=== PATIENT | female | born 1995 | race Caucasian/White ===

== ENCOUNTER → 2023-01-29 09:39 | Outpatient (CLI) | payer OTHER, SELFPAY ==
--- NOTE | ~2023-01-29 | US_ITS ---
EXAMINATION: US OB /maternal detail DATE: 01/29/2023 10:09 INDICATION: Second trimester anatomic survey TECHNIQUE: Real-time ultrasound of the pelvis was performed. COMPARISON: None. FINDINGS: There is a single living fetus in vertex presentation. The placenta is posterior and 5.2 cm from the internal cervical os. The cervical length is 2.4 cm. heart rate is 148 beats per minute (bpm). cardiac activity and movement are noted. The amniotic fluid index is subjectively normal . The outflow tracts of the heart are not well demonstrated. The following anatomy was identified as normal: 4 chamber heart 3 vessel cord cord insertion kidneys urinary bladder stomach spine diaphragm ventricles cisterna magna cerebellum The following biometric data were obtained: Biparietal diameter (BPD): 4.3 cm; head circumference (HC): 16.1 cm; abdominal circumference (AC): 12 .8 cm; femur length (FL): 2.8 cm. These measurements are concordant. Estimated weight is 243 g +/- 36 g, which correlates with the 60 percentile when 07/01/2023 is us ed as estimated date of delivery. As single measurements, these parameters are each equal to the following estimated gestational ages w ith ranges of +/- 2 standard deviations: BPD: 19 weeks 0 days ( 17 weeks 2 days - 20 weeks 5 days). HC: 18 weeks 6 days ( 17 weeks 3 days - 20 weeks 2 days). AC: 18 weeks 2 days ( 16 weeks 2 days - 20 weeks 3 days). FL: 18 weeks 4 days ( 16 weeks 5 days - 20 weeks 3 days). estimated gestational age based solely on measurements from this exam is 18 weeks 5 days +/- 1 weeks 2 days. IMPRESSION: 1. Single living fetus in vertex presentation. 2. Estimated weight is 243 g +/- 36 g, which correlates with the 60 percentile when 07/01/2023 is used as estimated date of delivery. 3. Outflow tracts of the heart are not well demonstrated. Reviewed, dictated and finalized at location L. IMPRESSION: 1. Single living fetus in vertex presentation. 2. Estimated weight is 243 g +/- 36 g, which correlates with the 60 perce ntile when 07/01/2023 is used as estimated date of delivery. 3. Outflow tracts of the heart are not well demonstrated.
== END ==
PROVIDERS: PCP Advanced Practice Midwife; Visit Provider Advanced Practice Midwife
DX: Z36.9 Encounter for antenatal screening, unspecified (principal)
CPT/HCPCS: 76805

== ENCOUNTER 2023-06-10 11:38 | Observation (INO) | payer OTHER, SELFPAY ==
[2023-06-10 12:30] VITALS: BP 116/79; PULSE 104
--- NOTE | 2023-06-10 12:31 | OBADM ---
This patient, Marcella Zapata, admitted to the OB room Labor/Delivery/Recovery 109 for observation. Patient/family oriented to hospital policies and general routines including ID bracelet, bed and alarms, visiting hours, pain management, procedures, bathroom and other care routines, personal items, smoking policy, room service/diet, and visiting hours. Patient/Family are encouraged to report perceived risks to care and to ask questions if they do not understand what they are told or what they should do.
--- NOTE | 2023-06-10 12:58 | PC.NURSE ---
1224: RN paged CATRACHITO Deluna. 1246: CATRACHITO responded to page. RN reported FHT that were category 1, occasional contractions that patient does not feel, patient's complaints of leaking fluid and feeling like she has to have a bowel movement, ROM Plus negative results, SVE,and vaginal discharge. Orders to discharge patient home with instructions on when to return to the hospital.
[2023-06-10 13:03] VITALS: BP 121/71; PULSE 109
--- NOTE | 2023-06-12 18:27 | PM.OBTRLD ---
OB - Triage/Final Diagnosis Visit Information Date of evaluation: 06/10/23 Reason for evaluation: other (leaking fluid) Comments/Additional reasons for admission: I have assessed the risk for this patient, Marcella Zapata, and determined that she would benefit from observation care.
== END 2023-06-10 13:00 | disposition home or self-care (01) ==
PROVIDERS: Admitting Provider Advanced Practice Midwife; PCP Family Medicine; Visit Provider Advanced Practice Midwife
DX: O42.92 Full-term premature rupture of membranes, unspecified as to length of time between rupture and onset of labor (principal); Z3A.37 37 weeks gestation of pregnancy
CPT/HCPCS: 59025; G0378; G0379

== ENCOUNTER 2023-06-17 22:40 | Observation (INO) | payer OTHER, SELFPAY ==
--- NOTE | 2023-06-17 23:56 | PC.NURSE ---
Updated Nyla Deluna CNM on pt, decreased movement, tracing, and contractions. Orders received to D/C pt with instructions on when to keep next appointment and when to return to unit.
[2023-06-18 00:22] VITALS: BMI 33.7
--- NOTE | 2023-06-18 00:24 | OBADM ---
This patient, Marcella Zapata, admitted to the OB room Labor/Delivery/Recovery 106 for observation. Patient/family oriented to hospital policies and general routines including ID bracelet, bed and alarms, visiting hours, pain management, procedures, bathroom and other care routines, personal items, smoking policy, room service/diet, and visiting hours. Patient/Family are encouraged to report perceived risks to care and to ask questions if they do not understand what they are told or what they should do.
--- NOTE | 2023-06-21 05:03 | PM.OBTRLD ---
OB - Triage/Final Diagnosis Visit Information Date of evaluation: 06/17/23 Reason for evaluation: decreased movement and threatened labor Comments/Additional reasons for admission: I have assessed the risk for this patient, Marcella Zapata, and determined that she would benefit from observation care.
== END 2023-06-18 00:43 | disposition home or self-care (01) ==
PROVIDERS: Admitting Provider Advanced Practice Midwife; PCP Family Medicine; Visit Provider Advanced Practice Midwife
DX: O36.8130 Decreased fetal movements, third trimester, not applicable or unspecified (principal); Z3A.38 38 weeks gestation of pregnancy; O47.1 False labor at or after 37 completed weeks of gestation
CPT/HCPCS: G0378; G0379

== ENCOUNTER 2023-06-20 18:16 | Inpatient (IN) | payer OTHER, SELFPAY ==
[2023-06-20] VITALS (9 sets, daily range): BP systolic 114–145; BP diastolic 55–86; PULSE 91–104; RESP 16–17; TEMP 36.6–37; BMI 33.8
--- NOTE | 2023-06-20 18:16 | LDADM ---
This patient, Marcella Zapata, was admitted to Labor/Delivery/Recovery 107 on 06/20/23 at 18:16. Plans for labor, pain management and were discussed with patient. Patient/family oriented to hospital policies and general routines including ID bracelet, bed and alarms, visiting hours, pain management, procedures, bathroom and other care routines, personal items, smoking policy, room service/diet and guest tray routines, infant security routines, and visiting hours. Patient/Family are encouraged to report perceived risks to care and to ask questions if they do not understand what they are told or what they should do. See OBIX for further documentation.
[2023-06-20 19:48] LABS: Basophils Percent Auto 0.4 % (0.2-1.2); Eosinophils Absolute Auto 0.1 K/mm3 (0-0.3); Eosinophils Percent Auto 0.6 % (0-4.4); Hematocrit 41.9 % (37.0-47.0); Hemoglobin 13.7 g/dL (12.0-15.0); Immature Granulocyte Absolute 0.12 K/mm3 (0.00-0.031); Immature Granulocyte Percent A 1.1 % (0-0.5); Lymphocytes Absolute Auto 1.78 K/mm3 (0.9-3.2); Lymphocytes Percent Auto 15.8 % (18.3-44.2); Mean Corpuscular HGB Conc 32.7 g/dl (32-36); Mean Corpuscular Volume 88.6 fl (80-100); Mean Platelet Volume 9.7 fl (7.4-10.4); Monocytes Absolute Auto 0.9 K/mm3 (0.1-0.6); Neutrophils Absolute Auto 8.3 K/mm3 (1.3-6.7); Neutrophils Percent Auto 74.1 % (45.5-73.1); Platelet Count Result 215 k/mm3 (150-375); Red Blood Count 4.73 M/mm3 (4.2-5.4); White Blood Count 11.3 K/mm3 (4.5-10.0)
[2023-06-21] VITALS (33 sets, daily range): BP systolic 96–116; BP diastolic 49–67; PULSE 74–116; RESP 15–18; TEMP 36.5–37.3; O2SAT 97–100
[2023-06-21] MEDS: ONDANSETRON INJ 4 MG/2 ML VIAL IV PUSH (00:27)
--- NOTE | 2023-06-21 00:42 | WPDOBADMIT ---
Obstetrics - Admit Note Admission Note: record reviewed. No pertinent additions to the history and/or any subsequent changes in the physical findings that are not consistent with the expected course of the were found. Additions to the history and/or subsequent changes in the physical findings follow. None.
[2023-06-21] MEDS: OXYTOCIN 30 UNITS/NS 500 ML 30 UNITS/500 ML BAG 999 UNITS IV CONT (03:14)
[2023-06-21] MEDS: LIDOCAINE HCL 1% LOCAL INJ 20 ML VIAL ×2 (03:15→03:29)
--- NOTE | 2023-06-21 04:23 | PM.OBPRVD ---
OB - Delivery Note Procedure Delivery date: 06/21/23 Procedure: Induction method: None Delivery monitor: External FHT and External Uterine Route of delivery: Episiotomy description: None Laceration Description: Perineal - 2nd Degree and Vaginal (left vaginal side wall) Delivery repair: vicryl Specimen: No Quantitative Blood Loss (ml): 450 Anesthesia type: Local (for repair) Disposition: Floor Narrative: Patient arrived in spontaneous labor and progressed to complete dilation. She began pushing with contractions and made steady progress to . She delivered the head in the SHER position. There was excellent restitution in the anterior and posterior shoulders were delivered easily. After the remainder of the infant was delivered, she was placed on the maternal abdomen and dried and stimulated by the nursery staff. Before 1 minute of life, nursery staff requested the cord be clamped and cut for further assessment on the warmer. The cord was doubly clamped and then cut. Cord blood, cord gases, and cord segment were obtained. The placenta delivered spontaneously in the [place] presentation. lidocaine was injected in the vagina and perineum for repair. Patient tolerated this well. All delivery counts correct. Uterine tone was good, and there was excellent hemostasis. Baby Date of : 06/21/23 Time of : 03:13 Weeks of gestation at delivery: 38 Infant gender: Female Weight (pounds): 7 Weight (ounces): 10 presentation: vertex position: Left Occiput Anterior Placenta delivery description: Spontaneous and Normal Configuration Cord Vessel Description: 3 Vessels and Clamped/Cut score one minute: 8 score five minutes: 9
--- NOTE | 2023-06-21 04:29 | PM.OBDSVD ---
DS: Admitting Diagnosis Discharge Date 06/23/2023 Admitting Diagnosis 27 y.o. G1PO at 38 weeks gestation Spontaneous labor Anxiety and Depression Vegitarian B12 Deficiency DS: Discharge Diagnosis Discharge Diagnosis (1) (normal spontaneous vaginal delivery): Code(s): O80 - Encounter for full-term uncomplicated delivery Status: Acute (2) Intends combined and formula feeding: Status: Acute (3) Anxiety: Code(s): F41.9 - Anxiety disorder, unspecified Status: Acute (4) Depression: Code(s): F32.A - Depression, unspecified Status: Acute (5) B12 deficiency: Code(s): E53.8 - Deficiency of other specified B group vitamins Status: Acute OB - DS: Summary Hospital Course Hospital Course: Uncomplicated OB Procedures : Ultrasound OB Procedures Intrapartum: Spontaneous Vag Delivery OB Procedures: : None Peripartum Data Delivery Method: Natural Vaginal Laceration Description: Perineal - 2nd Degree and Vaginal - 1st Degree (left labial sidewall) Episiotomy description: None complications: none Status at Discharge Functional status at discharge: independent ambulation Overall status at discharge: patient is progressing back to baseline Time Spent with Patient Time attestation: Total time spent providing and/or coordinating discharge services: Exam Narrative: Alert and oriented. Mood is pleasant and cooperative. Perineum with minimal edema. Fundus firm and below umbilicus. Const: General: cooperative, healthy appearing, no acute distress and alert Orientation/consciousness: patient oriented x3 Limitations: no limitations Resp: Effort & Inspection: normal respiratory effort and able to speak in complete sentences Auscultation: clear to auscultation bilaterally Cardio: Rate: regular rate GI: Inspection: normal to inspection Auscultation: normal bowel sounds : Speculum Exam - Vagina: vaginal bleeding OB/external & speculum: vaginal bleeding Skin: General skin exam: normal color and no rashes or lesions noted Neuro: General: patient oriented x3 and moves all extremities Cognition (Neuro): normal cognition Extrem: General: normal to inspection and no calf tenderness Psych: Appearance: grossly normal Mental Status: mental status grossly normal Affect: normal affect Thought process: Normal thought process present DS: Data Data Completed and Pending Labs on day of discharge: Labs from last 24 hours 06/20/23 19:30 WBC 11.3 H RBC 4.73 Hgb 13.7 Hct 41.9 MCV 88.6 MCH 29.0 MCHC 32.7 RDW 15.0 H Plt Count 215 MPV 9.7 Immature Gran % (Auto) 1.1 H Neut % (Auto) 74.1 H Lymph % (Auto) 15.8 L [place] % (Auto) 8.0 Eos % (Auto) 0.6 Baso % (Auto) 0.4 Lymph # (Auto) 1.78 [place] # (Auto) 0.9 H Eos # (Auto) 0.1 Baso # (Auto) 0.0 Abs Immat Gran (auto) 0.12 H Absolute Neuts (auto) 8.3 H Absolute Nucleated RBC 0.0 Nucleated RBC % 0.0 RPR Pending Blood Type O Positive Antibody Screen Negative Discharge Plan Discharge Attending physician on discharge: Patricia Steiner Discharging Clinician: Elena Deluna Patient Disposition: Home, Self-Care Activity: may shower Diet: as tolerated Wound Care Instructions: follow printed instructions Discharge Instructions: Continue taking your vitamin and any other supplements as previously directed (Examples: Iron, Vitamin D). You may take Tylenol 1000mg over the counter every 6 hours as needed for pain. Do not exceed 4000mg of Tylenol daily. You may continue using tucks pads and dermoplast spray if needed for a few more days. Patient Instructions: Antibiotic Form Stand Alone Forms: General Discharge Information Follow-up/Referrals: Elena Deluna, CATRACHITO [Certified Nurse Transportation Department Supervisor] - (6 week appointment) Discharge Medications: New ferrous fumarate 324 mg (106 mg iron) tablet 32
[2023-06-21] MEDS: WITCH HAZEL 40 PADS 1 PAD TOPICAL (05:18)
[2023-06-21] MEDS: IBUPROFEN 600 MG TABLET PO ×3 (05:18→20:50)
[2023-06-21] MEDS: ACETAMINOPHEN 325 MG TABLET 650 MG PO ×3 (05:18→20:50)
[2023-06-21] MEDS: BENZOCAINE 20% AER SPR (*SP) 56 GM CAN 1 SPRAY TOPICAL (05:18)
[2023-06-21] MEDS: SERTRALINE HCL 50 MG TABLET 150 MG PO (20:41)
[2023-06-22] MEDS: ACETAMINOPHEN 325 MG TABLET 650 MG PO ×3 (04:15→19:15)
[2023-06-22] MEDS: IBUPROFEN 600 MG TABLET PO ×3 (04:15→19:15)
[2023-06-22 04:30] LABS: Hematocrit 33.4 % (37.0-47.0); Hemoglobin 10.8 g/dL (12.0-15.0)
[2023-06-22 08:00] VITALS: BP 112/69; PULSE 81; RESP 16; TEMP 37.2; O2SAT 98
--- NOTE | 2023-06-22 08:00 | PM.OBPNVD ---
OB - PN: Subj Subjective Date/time seen: 06/22/23 0750 Patient comments: no complaints and pain well controlled baby status: doing well and bottle feeding well feeding status: exclusively bottle feeding Narrative: PPD 1 from unmedicated . Exclusively formula feeding. Partner present and supportive. + bonding. OB - PN: Obj Data Labs 06/22/23 04:22 Labs: Laboratory Results - last 24 hr 06/22/23 04:22 Hgb 10.8 L Hct 33.4 L OB - PN A/P Plan day: 1 Plan: routine care Comments: Pt exclusively formula feeding. Discussed limiting stimulation to the breasts, supportive bra, ice, ibuprofen, etx. Time Spent With Patient Time: Total time spent is greater than 50% in coordination of care (as documented) at patient's floor/unit and/or counseling patient: Review of Systems Review of Systems: All systems reviewed & are unremarkable except as noted in HPI and below Constitutional: Constitutional: Reports no additional constitutional complaints Genitourinary: Comments: Urinating without difficulty. Exam Narrative: Alert and oriented. Mood is pleasant and cooperative. Perineum with minimal edema. Fundus firm and below umbilicus. Const: General: cooperative, healthy appearing, no acute distress and alert Orientation/consciousness: patient oriented x3 Limitations: no limitations Resp: Effort & Inspection: normal respiratory effort and able to speak in complete sentences Auscultation: clear to auscultation bilaterally Cardio: Rate: regular rate GI: Inspection: normal to inspection Auscultation: normal bowel sounds : External Female Exam: laceration (approximated, minimal edema. No redness to site) Speculum Exam - Vagina: vaginal bleeding OB/external & speculum: vaginal bleeding Skin: General skin exam: normal color and no rashes or lesions noted Neuro: General: patient oriented x3 and moves all extremities Cognition (Neuro): normal cognition Extrem: General: normal to inspection and no calf tenderness Psych: Appearance: grossly normal Mental Status: mental status grossly normal Affect: normal affect Thought process: Normal thought process present
[2023-06-22 10:56] LABS: Rapid Plasma Reagin Non-Reactive (NonReactive)
[2023-06-22] MEDS: WITCH HAZEL 40 PADS 1 PAD TOPICAL (12:04)
[2023-06-22] MEDS: BENZOCAINE 20% AER SPR (*SP) 56 GM CAN 1 SPRAY TOPICAL (12:05)
[2023-06-22 19:15] VITALS: BP 115/69; PULSE 93; RESP 16; TEMP 36.6
[2023-06-23] MEDS: ACETAMINOPHEN 325 MG TABLET 650 MG PO (05:24)
[2023-06-23] MEDS: IBUPROFEN 600 MG TABLET PO (05:24)
--- NOTE | 2023-06-23 07:35 | P.PNOB_ITS ---
OB - PN: Subj Subjective Date/time seen: 06/23/23 07:30 Patient comments: no complaints and pain well controlled baby status: doing well and bottle feeding well [place] feeding status: exclusively bottle feeding Narrative: PPD 2 from . Doing very well. Desires DC home today. OB - PN: Obj Data Labs 06/22/23 04:22 Labs: Laboratory Results - last 24 hr 06/20/23 19:30 RPR Non-reactive OB - PN A/P Plan day: 2 Plan: discharge home Time Spent With Patient Time: Total time spent is greater than 50% in coordination of care (as documented) at patient's floor/unit and/or counseling patient: Review of Systems Review of Systems: All systems reviewed & are unremarkable except as noted in HPI and below Constitutional: Constitutional: Reports no additional constitutional complaints Genitourinary: Comments: Urinating without difficulty. Exam Narrative: Alert and oriented. Mood is pleasant and cooperative. Perineum with minimal jackie ma. Fundus firm and below umbilicus. Const: General: cooperative, healthy appearing, no acute distress and alert Orientation/consciousness: patient oriented x3 Limitations: no limitations Resp: Effort & Inspection: normal respiratory effort and able to speak in complete sentences Auscultation: clear to auscultation bilaterally Cardio: Rate: regular rate GI: Inspection: normal to inspection Auscultation: normal bowel sounds : Speculum Exam - Vagina: vaginal bleeding OB/external & speculum: vaginal bleeding Skin: General skin exam: normal color and no rashes or lesions noted Neuro: General: patient oriented x3 and moves all extremities Cognition (Ne uro): normal cognition Extrem: General: normal to inspection and no calf tenderness Psych: Appearance: grossly normal Mental Status: mental status grossly normal Affect: normal affect Thought process: Normal thought process present
[2023-06-23 08:32] VITALS: BP 109/56; PULSE 90; RESP 18; TEMP 36.3; O2SAT 100
[2023-06-24 10:18] VITALS: BP 113/73; PULSE 85; RESP 18; TEMP 37.2; O2SAT 100
== END 2023-06-23 11:18 | disposition home or self-care (01) | DRG 807 ==
LOC: ANHLDR 06-21 04:35 → ANHOB2 06-21 08:42
PROVIDERS: Advanced Practice Midwife; Admitting Provider Obstetrics & Gynecology Gynecology; PCP Family Medicine; Visit Provider Obstetrics & Gynecology Gynecology
DX: O77.0 Labor and delivery complicated by meconium in amniotic fluid (principal); Z37.0 Single live birth; O70.1 Second degree perineal laceration during delivery; O99.344 Other mental disorders complicating childbirth; F41.8 Other specified anxiety disorders; E53.8 Deficiency of other specified B group vitamins; Z3A.38 38 weeks gestation of pregnancy
CPT/HCPCS: 36415; 85014; 85018; 85025; 86592; 86850; 86900; 86901; A9270; J2405; J2590

== ENCOUNTER 2025-08-30 10:45 | Outpatient (CLI) | payer OTHER, SELFPAY ==
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
--- OUTSIDE RECORDS SUMMARY | 2025-08-31 10:38 | XMS_ITS | Clinical Summary ---
Author Organization [facility] C Address [address] [place] [address] Care Team Providers Care It Associate Name Role Phone Marito Marie DO Primary Care Provider + Allergies No known active allergies Medications hydrOXYzine (ATARAX) 10 mg tabletIndications: Anxiety Take 1-2 tablets (10-20 mg total) by mouth every 8 (eight) hours as needed for anxiety 90 tablet 1 06/17/20 21 Active Additional Information Patient not taking.Reported on 09/05/2024 sertraline (ZOLOFT) 100 mg tablet TAKE 1 AND 1/2 TABLETS BY MOUTH EVERY DAY AT BEDTIME 08/21/20 23 Active ondansetron ODT (ZOFRAN-ODT) 4 mg disintegrating tablet Take 1 tablet (4 mg total) by mouth every 8 (eight) hours as needed for nausea 20 tablet 10/25/20 24 Active famotidine (PEPCID) 20 mg tablet Take 1 tablet (20 mg total) by mouth 2 (two) times a day for 15 days 30 tablet 10/25/20 24 Active amoxicillin-clavul anate (AUGMENTIN) 875-125 mg per tablet Take 1 tablet by mouth 2 (two) times a day 20 tablet 04/14/20 25 Active promethazine-DM (PROMETHAZINE-DM) 1.25-3 mg/mL syrup Take 5 mL by mouth every 4 (four) hours as needed for cough 120 mL 04/14/20 25 Active Active Problems Problem Noted Date Diagnosed Date MINAL (generalized anxiety disorder) 12/13/2021 Chronic pain of right knee 06/13/2021 Gastroesophageal reflux disease without esophagi tis 06/13/2021 Resolved Problems Problem Noted Date Diagnosed Date Resolved Date Anxiety 06/18/2021 12/13/2021 Assessment & Plan (06/18/2021 6:04 AM CDT): Uncontrolled Continue breathing exercises Discussed healthy diet & regular exercise Discussed meditation Continue lexapro Start atarax as needed Given Crisis line # Immunizations Immunization Administration Dates Next Due DTaP 5 Pertussis 05/10/2001, 7,04/20/1996,02/16,1995 Flucelvax Influenza Quad 12/12/2019 HPV, Unspecified 09/02/2010,04/30/2010, 9 Hep A, Unspecified 03/02/2008,02/05/2006 Hep B, Unspecified 07/15/1996,1995, 995 HiB 01/11/1997, 6,02/17/1996,12/17 IPV 05/10/2001, 6,02/17/1996,12/17 Influenza, Quadrivalent, Spl it, Preservative Free, Intramuscular 08/31/2023,07/19/2021,08/28/2020 Influenza, Trivalent, Preser vative Free, Intramuscular 09/05/2024 Influenza, Unspecified 08/26/2022,05/10/2001 MMR 05/10/2001,1996 Meningococcal ACWY, Unspecified 06/10/2012,06/05 Pfizer SARS-CoV-2 Monovalent Vaccination (12+ Yrs) PURPLE 01/04/2021,12/14/2020 Tdap 02/23/2023,02/05/2006 Varicella 06/07/2009,01/11/1997 Surgical History Surgery Date Site/Laterality Comments KNEE ARTHROSCOPY W/ LATERAL RELEASE 03/26/2011 - 04/24/20 11 WISDOM TOOTH EXTRACTION TONSILLECTOMY AND ADENOIDECTOMY Medical History Medical History Date Comments Arthritis 06/2017 Family History Medical History Relation Name Comments Depression Brother Peng Clotting disorder Maternal Grandfather Moses Early Maternal Grandfather Moses Heart attack Maternal Grandfather Moses Heart disease Maternal Grandfather Moses Hypertension Maternal Grandfather Moses Obesity Maternal Grandfather Moses Arthritis Maternal Grandmother Cha Memory loss Maternal Grandmother Cha Obesity Maternal Grandmother Cah Miscarriages / Stillbirths Mother Bernadette Obesity Mother Bernadette Alcohol abuse Mother's Brother 1 Donavan Obesity Mother's Brother 1 Donavan Obesity Mother's Brother 2 Michael Obesity Paternal Grandfather Mal Cancer Paternal Grandmother Cecile Relation Name Status Comments Brother Peng Father Alive Maternal Grandfather Moses Maternal Grandmother Cha Mother Bernadette Alive Mother's Brother 1 Donavan Mother's Brother 2 Michael Paternal Grandfather Mal Paternal Grandmother Cecile Social History Tobacco Use Types Packs/Day Years Used Date Smoking Tobacco: Never Smokeless Tobacco: Never Tobacco Cessation:Counseling Given: Not Answered Alcohol Use Standard Drinks/Week Comments Yes 1 (1 standard drink = 0.6 oz pur e alcohol) PHQ-2 Answer Date Recorded PHQ-2 Total Score (If total score is 3 or more points, staff should administer the PHQ-9) 0 09/05/2024 Personal Safety Answer Date Recorded Have you ever been in or are you currently in a harmful physical or emotional relationship or is someone making you feel afraid or unsafe? Denies 10/25/2024 Comments No Sex and Gender Information Value Date Recorded Sex Assigned at Not on file Legal Sex Female 11:07 AM CDT Gender Identity Female 05/05/2020 6:57 PM CDT Sexual Orientation Straight 05/05/2020 6: 57 PM CDT Last Filed Vital Signs Vital Sign Reading Time Taken Comments Blood Pressure 118/65 10/26/2024 12:00 AM OLIVE BRINE TESTER Pulse 94 10/26/2024 12:00 AM OLIVE BRINE TESTER Temperature 36.2 C (97.1 F) 10/25/2024 8:49 PM OLIVE BRINE TESTER Respiratory Rate 17 10/26/2024 12:00 AM OLIVE BRINE TESTER Oxygen Saturation 99% 10/26/2024 12:00 AM OLIVE BRINE TESTER Inhaled Oxygen Concentration - - Weight 77.1 kg (170 lb) 10/25/2024 8:49 PM OLIVE BRINE TESTER Height 170.2 cm (5' 7) 10/25/2024 8:49 PM OLIVE BRINE TESTER Body Mass Index 26.63 10/25/2024 8:49 PM OLIVE BRINE TESTER Plan of Treatment Health Maintenance Due Date Last Done Comments Cervical Cancer Screening 1995 Hepatitis C Screening 1995 Covid-19 Vaccine ( season) 2025 10/02/2021, 01/04/2021, 12/14/2020 Influenza Vaccine (#1) 2025 , 08/31/2023, 08/26/2022, Additional history exists Depression Screening 09/05/2025 09/05/2024, 08/31/2023, 08/27/2022, Additional history exists Regular Well Visit/Exam 18-64 09/05/2025 09/05/2024, 08/31/2023, 08/27/2022, Additional history exists DTaP/Tdap/Td Vaccine (8 - Td or Tdap) 02/23/2033 02/23/2023, 02/05/2006, 05/10/2001, Additional history exists Hepatitis B Screening Completed 07/15/1996 , 1995, 1995 Varicella Vaccines Completed 06/07/2009, 01/11/1997 HPV Vaccines Completed 09/02/2010, 03/2010, 06/05/2009 Pneumococcal vaccine <65 Aged Out No longer eligible based on patient's age to complete this topic Insurance [facility] [employer] Address: [facility] [id number] [place] [id number] [facility] [employer]IGNA CIGNA Care Teams It Associate Relationship Specialty Start Date End Date Marito Marie DO [address] [place] [id number] PCP - General Family Medicine 01/28/21
--- OUTSIDE RECORDS SUMMARY | 2025-08-31 10:38 | XMS_ITS | Clinical Summary ---
Author Organization [facility] Address [address] [place] [id number] Care Team Providers Care Choker Setter Name Role Phone Marito Marie DO Primary Care Provider [phone] Allergies No known active allergies Medications No known medications Family History Medical History Relation Comments No Known Problems Father Cancer Maternal Grandmother No Known Problems Mother Relation Status Comments Father Alive Maternal Grandmother Mother Alive Social History Tobacco Use Types Packs/Day Years Used Date Smoking Tobacco: Never Smokeless Tobacco: Never Tobacco Cessation:Counseling Given: Not Answered Alcohol Use Standard Drinks/Week Comments Not Currently 0 (1 standard drink = 0.6 oz pur e alcohol) socially Comments No Sex and Gender Information Value Date Recorded Sex Assigned at Not on file Legal Sex Female 8:01 AM CDT Gender Identity Not on file Sexual Orientation Not on file Last Filed Vital Signs Vital Sign Reading Time Taken Comments Blood Pressure 110/75 04/27/2024 8:24 AM CDT Pulse 80 04/27/2024 8:24 AM CDT Temperature 37.2 C (98.9 F) 04/27/2024 8:24 AM CDT Respiratory Rate 16 04/27/2024 8:24 AM CDT Oxygen Saturation 100% 04/27/2024 8:24 AM CDT Inhaled Oxygen Concentration - - Weight 79.4 kg (175 lb) 04/27/2024 8:24 AM CDT Height 170.2 cm (5' 7) 04/27/2024 8:24 AM CDT Body Mass Index 27.41 04/27/2024 8:24 AM CDT Plan of Treatment Health Maintenance Due Date Last Done Comments Cervical Cancer Screening Pap Smear (Age 21 to 29) Every 3 Years 1995 Cervical Cancer Screening 1995 Annual Physical 1998 COVID-19 Vaccine ( season) 2025 10/02/2021, 01/04/2021, 12/14/2020 Influenza Adult (#1) 2025 08/31/2023, 08/26/2022, 07/19/2021, Additional history exists DTaP, Tdap and Td Vaccines (8 - Td or Tdap) 02/23/2033 02/23/2023, 02/05/2006, 05/10/2001, Additional history exists Hepatitis B Vaccines Completed 07/15/1996, 1995, 1995 Hepatitis A Vaccines Completed 03/02/2008, 02/28/2008, 02/05/2006 HPV Vaccines Completed 09/02/2010, 0703/2010, 06/05/2009 Meningococcal Vaccine Aged Out 06/10/2012, 009 No longer eligible based on patient's age to complete this topic Hepatitis C Completed 12/10/2022 Meningococcal B Vaccine Aged Out No l onger eligible based on patient's age to complete this topic Pneumococcal Vaccine: Pediatrics (0 to 5 Years) and At-Risk Patients (6 to 49 Years) Aged Out No longer eligible based on patient's age to complete this topic RSV Immunizations Under 20 Months Aged Out No longer eligible based on patient's age to complete this topic Procedures Procedure Name Priority Date/Time Associated Diagnosis Comments HEPATITIS C ANTIBODY Routine 12/10/2022 4:40 PM ENVIRONMENTAL REMEDIATION SPECIALIST Screening for -associate d plasma protein A (HHS/HCC) from Last 3 Months or Most Recently Relevant to Health Maintenance Results * HEPATITIS C ANTIBODY (12/10/2022 4:40 PM ENVIRONMENTAL REMEDIATION SPECIALIST) HEPATITIS C AB NON-REACTI VE NON-REACTI VE 12/11/2022 12:02 PM ENVIRONMENTAL REMEDIATION SPECIALIST [facility] 12/10/2022 4:40 PM ENVIRONMENTAL REMEDIATION SPECIALIST [facility] Final Result [facility] [address] [place] [address], from Last 3 Months or Most Recently Relevant to Health Maintenance Insurance Care Teams Choker Setter Relationship Specialty Start Date End Date Marito Marie DO [address] [place] [place], [place] [id number] PCP - General FAMILY PRACTICE 09/16/22
--- OUTSIDE RECORDS SUMMARY | 2025-08-31 10:38 | XMS_ITS | Clinical Summary ---
Author Organization [facility] Address [address] [place] [address] Phone Care Team Providers Care Steam Flattener Name Role Phone Unavailable Primary Care Provider Unavailabl e Social History Tobacco Use Types Packs/Day Years Used Date Smoking Tobacco: Never Assessed Comments Unknown Sex and Gender Information Value Date Recorded Sex Assigned at Not on file Legal Sex Female 3:59 PM CDT Gender Identity Not on file Sexual Orientation Not on file Plan of Treatment Health Maintenance Due Date Last Done Comments DTAP/TDAP/TD VACCINES (1 - Tdap) 2014 HEPATITIS B VACCINES (1 of 3 - 19+ 3-dose series) 09/25 CERVICAL CANCER SCREENING 2016 HPV/Cotest (21-29) 2016 PAP SMEAR 2016 HPV VACCINES (1 - 3-dose SCDM series) 2022 INFLUENZA VACCINE (#1) 2025 Insurance [employer] OPEN ACCESS HMO
--- NOTE | 2025-09-07 11:49 | WPDHOLTEREM ---
Holter/Event Monitor Holter/Event Monitor Date of procedure: 08/30/25 Holter/Event Procedure: 3-7 Day Holter Monitor Indications: Palpitations Conclusion: 1. 3 days holter monitor on 08/30/25. 2. Underlying rhythm is sinus rhythm. HR range 54-145 bpm; average HR 83 bpm. 3. There are rare premature supraventricular complexes. No supraventricular tachycardia. 4. There are rare premature ventricular complexes. No ventricular tachycardia. 5. No significant pauses greater than 3 seconds. 6. Patient reports 50 episodes of symptoms which correlated with majority of the time PVC's.
== END 2025-08-30 10:46 | disposition home or self-care (01) ==
PROVIDERS: PCP Family Medicine; Visit Provider Obstetrics & Gynecology Gynecology
DX: R00.2 Palpitations (principal)
CPT/HCPCS: 93242

== ENCOUNTER 2025-09-01 10:41 | Outpatient (CLI) | payer OTHER, SELFPAY ==
--- NOTE | ~2025-09-01 | US_ITS ---
Clinical history:Dating EXAM:Ultrasound OB transvaginal TECHNIQUE:Multiple static grayscale images and color Doppler transvaginal images were obtained Comparisons:None available FINDINGS: Uterus measures 10.8 x 7.6 x 7.9 cm. There appears to be a dichorionic diamnionic twin . Baby A measures 2.4 cm in greatest dimension which gives a gestational age of 9 weeks. Heart rate was 171 bpm. Baby B measures 2.6 cm in greatest dimension which gives a gestational age 9 weeks. Heart rate was 76 bpm. Ovaries are not visualized. No free fluid in the pelvis identified. IMPRESSION: 1. There appears to be a dichorionic diamniotic twin with gestational ages of 9 weeks. Follow-up is recommended. Reviewed, dictated and finalized at location Q. TY RESEARCH ASSOCIATE
== END 2025-09-01 10:42 | disposition home or self-care (01) ==
LOC: MICIMG 10:42
PROVIDERS: PCP Obstetrics & Gynecology Gynecology; Visit Provider Obstetrics & Gynecology Gynecology
DX: Z36.87 Encounter for antenatal screening for uncertain dates (principal)
CPT/HCPCS: 76817